=== PATIENT | female | born 2000 | race Caucasian/White ===

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

== ENCOUNTER 2023-11-29 12:33 | Emergency (ER) | payer OTHER ==
[~2023-11-29] VITALS: Ht 167.6 cm; Wt 53.6 kg
[2023-11-29] MEDS ORDERED: PAROXETINE HCL20 MG PO (14:35)
[2023-11-29 15:11] VITALS: BP 125/85
[2023-11-29] MEDS ORDERED: MECLIZINE HCL 25 MG TAB PO ONE (15:15)
== END 2023-11-29 15:18 | disposition home or self-care (01) ==
LOC: ED 12:33
DX: R42 Dizziness and giddiness (principal); Z79.899 Other long term (current) drug therapy
CPT/HCPCS: 99283; A9270